=== PATIENT | female | born 1995 | race Caucasian/White ===

== ENCOUNTER 2017-07-22 18:38 | Emergency (ER) | payer BC, SELFPAY ==
[2017-07-22 19:41] VITALS: BP 120/74; PULSE 72; RESP 20; TEMP 36.8; O2SAT 99; BMI 21.5
--- NOTE | 2017-07-22 19:50 | HMH.EDUTC ---
[facility] [place] Clinical Impression: Otitis externa Qualifiers: Otitis externa type: unspecified type Laterality: right Disposition: Home, Self-Care Condition on Discharge: Good Instructions: Otitis Externa, DI for Otitis Externa Additional Instructions: Use bacitracin ointment as prescribed Use ear drops as prescribed Follow up with family doctor REturn if needed Prescriptions: Bacitracin [Bacitracin Oint 0.9GM UDP] 1 each TP TID #20 packet Ciprofloxacin HCl/Dexameth [Cipro 0.3%-Dex 0.1% Otic Susp 7.5mL] 4 drops EAR-RIGHT BID #1 drops.susp Referrals: Jovi Sanon MD [Primary Care Provider] - Time of Disposition: 19:59 Medical Decision Making - Medical Records Medical records reviewed: Yes: I reviewed the patient's medical records. Vital Signs: 07/22/17 19:41 Temperature 98.2 F Temperature Source Temporal Artery Scan Pulse Rate [Right Radial] 72 Respiratory Rate 20 Blood Pressure [Right Arm] 120/74 Blood Pressure Mean [Right Arm] 89 Blood Pressure Source [Right Arm] Automatic Cuff Blood Pressure Position [Right Arm] Sitting 02 Sat by Pulse Oximetry 99 Oxygen Delivery Method Room Air - Donald Inquiry Pt receiving controlled substance: No Donald was queried for this patient: No [facility] [place] - General Stated complaint: ear pain Mode of Arrival: Ambulatory Source of Information: Patient Limitations: No Limitations Description of Symptoms (Recalled from Triage Doc. by RN): C/O EAR PAIN AND DRAINAGE FOR 1 WEEK. HEENT Symptoms (Recalled from RN notes): Yes (EAR PROBLEMS AND DRAINAGE) Resp Symptoms (Recalled from RN notes): No Skin Symptoms (Recalled from RN notes): No MS Symptoms (Recalled from RN notes): No Functional Status (Recalled from RN notes): NA - History of Present Illness Provider Complaint: Patient states that she has been having bilateral ear pain and drainage for over a week now States that right ear is hurting worse than left and now she is starting to have some sores on the outside of the ear where she is scratching the ear where it is itching State that she noticed that she is having drainage from the ear also - Related Data Home Medications Medication Instructions Recorded Confirmed Norethindrone-E.estradiol-Iron 1 mg PO DAILY 07/22/17 07/22/17 [Microgestin Fe 1-20 Tablet] Previous Rx's Medication Instructions Recorded Bacitracin [Bacitracin Oint 0.9GM 1 each TP TID #20 packet 07/22/17 UDP] Ciprofloxacin HCl/Dexameth [Cipro 4 drops EAR-RIGHT BID #1 drops.susp 07/22/17 0.3%-Dex 0.1% Otic Susp 7.5mL] Allergies Allergy/AdvReac Type Severity Reaction Status Date / Time No Known Allergies Allergy Verified 07/22/17 19:13 - Worker's Comp Is this a Worker's Comp case?: No [facility] History I have reviewed the patient's past medical history: Yes - *Social History Smoking Status: Never smoker Alcohol Intake: never - Psychiatric History Expresses thoughts of harming self/others: None Suicide Plan Description: No Plan ROS Obtained: Yes All systems reviewed & no additional complaints - ENT Ears, Nose, Mouth, and Throat: Reports otalgia Physical Exam - General General appearance: alert, in no apparent distress - Expanded ENT Exam External ear exam: Present: pain with movement, external tenderness TM/Canal exam: Right TM: erythema (of the canal noted with lesions on outside of ear) - Respiratory Respiratory exam: Present: normal lung sounds bilaterally. Absent: respiratory distress - Cardiovascular Cardiovascular exam: Present: regular rate, normal rhythm. Absent: JVD - Neurological Exam Neurological exam: Present: alert, oriented X3
--- NOTE | 2017-07-22 19:53 | ED_ITS ---
[facility] [place] Disposition Clinical Impression: Otitis externa Qualifiers: Otitis externa type: unspecified type Laterality: right Disposition: Home, Self-Care Condition on Discharge: Good Instructions: Otitis Externa, DI for Otitis Externa Additional Instructions: Use bacitracin ointment as prescribed Use ear drops as prescribed Follow up with family doctor REturn if needed Prescriptions: Bacitracin [Bacitracin Oint 0.9GM UDP] 1 each TP TID #20 packet Ciprofloxacin HCl/Dexameth [Cipro 0.3%-Dex 0.1% Otic Susp 7.5mL] 4 drops EAR- RIGHT BID #1 drops.susp Referrals: Jovi Saonn MD [Primary Care Provider] - Time of Disposition: 19:59 Medical Decision Making - Medical Records Medical records reviewed: Yes: I reviewed the patient's medical records. Vital Signs: 07/22/17 19:41 Temperature 98.2 F Temperature Source Temporal Artery Scan Pulse Rate [Right Radial] 72 Respiratory Rate 20 Blood Pressure [Right Arm] 120/74 Blood Pressure Mean [Right Arm] 89 Blood Pressure Source [Right Arm] Automatic Cuff Blood Pressure Position [Right Arm] Sitting 02 Sat by Pulse Oximetry 99 Oxygen Delivery Method Room Air - Donald Inquiry Pt receiving controlled substance: No Donald was queried for this patient: No [facility] [place] HPI - General Stated complaint: ear pain Mode of Arrival: Ambulatory Source of Information: Patient Limitations: No Limitations Description of Symptoms (Recalled from Triage Doc. by RN): C/O EAR PAIN AND DRAINAGE FOR 1 WEEK. HEENT Symptoms (Recalled from RN notes): Yes (EAR PROBLEMS AND DRAINAGE) Resp Symptoms (Recalled from RN notes): No Skin Symptoms (Recalled from RN notes): No MS Symptoms (Recalled from RN notes): No Functional Status (Recalled from RN notes): NA - History of Present Illness Provider Complaint: Patient states that she has been having bilateral ear pain and drainage for over a week now States that right ear is hurting worse than left and now she is starting to have some sores on the outside of the ear where she is scratching the ear where it is itching State that she noticed that she is having drainage from the ear also - Related Data Home Medications Medication Instructions Recorded Confirmed Norethindrone-E.estradiol-Iron 1 mg PO DAILY 07/22/17 07/22/17 [Microgestin Fe 1-20 Tablet] Previous Rx's Medication Instructions Recorded Bacitracin [Bacitracin Oint 0.9GM 1 each TP TID #20 packet 07/22/17 UDP] Ciprofloxacin HCl/Dexameth [Cipro 4 drops EAR-RIGHT BID #1 drops.susp 07/22/17 0.3%-Dex 0.1% Otic Susp 7.5mL] Allergies Allergy/AdvReac Type Severity Reaction Status Date / Time No Known Allergies Allergy Verified 07/22/17 19:13 - Worker's Comp Is this a Worker's Comp case?: No [facility] History I have reviewed the patient's past medical history: Yes - *Social History Smoking Status: Never smoker Alcohol Intake: never - Psychiatric History Expresses thoughts of harming self/others: None Suicide Plan Description: No Plan ROS Obtained: Yes All systems reviewed & no additional complaints - ENT Ears, Nose, Mouth, and Throat: Reports otalgia Physical Exam - General General appearance: alert, in no apparent distress - Expanded ENT Exam External ear exam: Present: pain with movement, external tenderne
== END 2017-07-22 20:03 | disposition home or self-care (01) ==
PROVIDERS: Emergency Provider Nurse Practitioner; PCP Family Medicine
DX: H60.501 Unspecified acute noninfective otitis externa, right ear (principal)
CPT/HCPCS: 99201